=== PATIENT | female | born 2000 | race Caucasian/White ===

== ENCOUNTER 2019-07-25 17:17 | Emergency (ER) | payer MEDICAID ==
[~2019-07-25] VITALS: Ht 167.6 cm; Wt 88.6 kg
[2019-07-25 17:19] VITALS: BP 149/96
== END 2019-07-25 17:39 | disposition home or self-care (01) ==
LOC: ER 17:17
DX: J06.9 Acute upper respiratory infection, unspecified (principal)
CPT/HCPCS: 99281

== ENCOUNTER 2020-08-11 21:05 | Emergency (ER) | payer MEDICAID ==
[~2020-08-11] VITALS: Ht 167.6 cm; Wt 97.3 kg
[2020-08-11] MEDS ORDERED: LIDOcaine Viscous 15ml cup TP ONE (22:20)
[2020-08-11] MEDS ORDERED: mag hydrox/Alum hydrox/simeth 30ml oral suspension PO ONE (22:20)
[2020-08-11 22:21] VITALS: BP 124/82
== END 2020-08-11 22:59 | disposition home or self-care (01) ==
LOC: ER 21:06
DX: K29.00 Acute gastritis without bleeding (principal); A05.9 Bacterial foodborne intoxication, unspecified; R07.89 Other chest pain; M54.2 Cervicalgia; R11.10 Vomiting, unspecified; R06.02 Shortness of breath; F17.200 Nicotine dependence, unspecified, uncomplicated
CPT/HCPCS: 71045; 99283

== ENCOUNTER 2021-03-05 20:40 | Emergency (ER) | payer MEDICAID ==
[~2021-03-05] VITALS: Ht 165.1 cm; Wt 97.7 kg
[2021-03-05] MEDS ORDERED: famotidine/PF 10 mg/ml inj IV ONE (21:10)
[2021-03-05] MEDS ORDERED: ondansetron 4mg rapidly disintigrating tab PO ONE (21:10)
[2021-03-05 21:57] VITALS: BP 118/72
[2021-03-05] MEDS ORDERED: EPIN0.3P3 IM (22:28)
== END 2021-03-05 22:46 | disposition home or self-care (01) ==
LOC: ER 20:40
DX: T78.2XXA Anaphylactic shock, unspecified, initial encounter (principal); R42 Dizziness and giddiness; R06.02 Shortness of breath; R11.0 Nausea; Z72.0 Tobacco use; Z79.899 Other long term (current) drug therapy; X58.XXXA Exposure to other specified factors, initial encounter; Y93.89 Activity, other specified; Y92.89 Other specified places as the place of occurrence of the external cause; Y99.8 Other external cause status
CPT/HCPCS: 96374; 99284; J3490

== ENCOUNTER 2021-04-07 18:25 | Emergency (ER) | payer MEDICAID ==
[~2021-04-07] VITALS: Ht 165.1 cm; Wt 99.0 kg
[~2021-04-07 18:25] MED LIST: EPIN0.3P3 IM
[2021-04-07 18:43] VITALS: BP 143/81
[2021-04-07 21:04] LABS: BASOPHILS # (AUTO) 0.2 X10'3 (0-0.2); EOSINOPHILS # (AUTO) 0.4 X10'3 (0-0.9); EOSINOPHILS % (AUTO) 1.8 % (0-6); HEMOGLOBIN 13.5 g/dl (12.0-16.0); MEAN CORPUSCULAR HGB CONC 32.6 g/dL (33.0-36.5)
[2021-04-07 21:05] LABS: BASOPHILS % (AUTO) 0.9 % (0-1); HEMATOCRIT 41.5 % (35.0-45.0); LYMPHOCYTES # (AUTO) 4.3 X10'3 (1.1-4.8); LYMPHOCYTES % (AUTO) 20.3 % (21-51); MEAN CORPUSCULAR HEMOGLOBIN 25.5 PG (27.0-31.0); MEAN CORPUSCULAR VOLUME 78.2 FL (78-98); MEAN PLATELET VOLUME 9.2 FL (7.4-10.4); MONOCYTES # (AUTO) 1.3 X10'3 (0-0.9); MONOCYTES % (AUTO) 6.2 % (2-12); NEUTROPHILS % (AUTO) 70.8 % (42-75); PLATELET COUNT 378 X10'3 (140-440); RED BLOOD COUNT 5.31 X10'6 (4.20-5.60); RED CELL DISTRIBUTION WIDTH 13.1 % (11.5-14.5); WHITE BLOOD COUNT 21.2 X10'3 (4.5-11.0)
[2021-04-07 21:25] LABS: BETA HCG,QUANTITATIVE < 1.0 mIU/ml
[2021-04-07 22:11] LABS: CLARITY,URINE CLEAR (Clear); COLOR,URINE YELLOW (Yellow); GLUCOSE, URINE NEGATIVE (Neg); KETONES,URINE NEGATIVE (Neg); LEUKOCYTE ESTERASE ,URINE NEGATIVE (Neg); NITRITES, URINE NEGATIVE (Neg); OCCULT BLOOD,URINE NEGATIVE (Neg); PROTEIN,URINE NEGATIVE (Neg); UROBILINOGEN,URINE 0.2 E.U/dL (0.2-1.0)
[2021-04-07 22:12] LABS: UA COLLECTION TYPE CLN CATCH MIDSTREAM
[2021-04-07] MEDS ORDERED: ondansetron 4mg rapidly disintigrating tab PO ONE (22:20)
[2021-04-07] MEDS ORDERED: morphine 4 MG/ML inj SYRINge IM ONE (22:20)
[2021-04-07 22:45] LABS: ALANINE AMINOTRANSFERASE 58 U/L (12-78); ALBUMIN 3.6 G/DL (3.4-5.0); ALBUMIN/GLOBULIN RATIO 0.8 (1.1-1.5); ALKALINE PHOSPHATASE 80 IU/L (46-116); ANION GAP 12 (8-16); ASPARTATE AMINO TRANSFERASE 21 U/L (10-37); BILIRUBIN,TOTAL 0.2 MG/DL (0.1-1.0); BLOOD UREA NITROGEN 15 MG/DL (7-18); CALCIUM 9.8 MG/DL (8.5-10.1); CHLORIDE 105 MMOL/L (99-107); CREATININE 0.75 MG/DL (0.40-0.90); GLUCOSE 85 MG/DL (70-104); POTASSIUM 3.8 MMOL/L (3.5-5.1); SODIUM 141 MMOL/L (135-145); TOTAL CARBON DIOXIDE 23.9 MMOL/L (24-32); TOTAL PROTEIN 8.3 G/DL (6.4-8.2); eGFR > 90 ML/MIN
[2021-04-07] MEDS ORDERED: ACET-1025 PO (23:14)
== END 2021-04-07 23:44 | disposition home or self-care (01) ==
LOC: ER 18:26
DX: O26.91 Pregnancy related conditions, unspecified, first trimester (principal); N93.9 Abnormal uterine and vaginal bleeding, unspecified; R10.31 Right lower quadrant pain; Z3A.08 8 weeks gestation of pregnancy; Z79.899 Other long term (current) drug therapy
CPT/HCPCS: 36415; 74176; 80053; 81003; 84702; 85025; 86900; 86901; 99284

== ENCOUNTER 2021-07-21 16:29 | Inpatient (IN) | payer MEDICAID ==
[~2021-07-21] VITALS: Ht 165.1 cm; Wt 100.0 kg
[2021-07-21] MEDS ORDERED: normal saline 1000ml 1,000 ML IV ONE (17:30)
[2021-07-21 17:53] LABS: BASOPHILS # (AUTO) 0.2 X10'3 (0-0.2); BASOPHILS % (AUTO) 1.2 % (0-1); EOSINOPHILS # (AUTO) 0.6 X10'3 (0-0.9); EOSINOPHILS % (AUTO) 3.9 % (0-6); HEMATOCRIT 40.6 % (35.0-45.0); HEMOGLOBIN 13.3 g/dl (12.0-16.0); LYMPHOCYTES # (AUTO) 2.5 X10'3 (1.1-4.8); LYMPHOCYTES % (AUTO) 17.5 % (21-51); MEAN CORPUSCULAR HEMOGLOBIN 24.6 PG (27.0-31.0); MEAN CORPUSCULAR HGB CONC 32.7 g/dL (33.0-36.5); MEAN CORPUSCULAR VOLUME 75.2 FL (78-98); MEAN PLATELET VOLUME 8.4 FL (7.4-10.4); MONOCYTES # (AUTO) 0.9 X10'3 (0-0.9); MONOCYTES % (AUTO) 6.5 % (2-12); NEUTROPHILS # (AUTO) 10.2 X10'3 (1.8-7.7); NEUTROPHILS % (AUTO) 70.9 % (42-75); PLATELET COUNT 377 X10'3 (140-440); RED CELL DISTRIBUTION WIDTH 14.6 % (11.5-14.5); WHITE BLOOD COUNT 14.4 X10'3 (4.5-11.0)
[2021-07-21 17:58] LABS: URINE HCG NEGATIVE (NEG)
[2021-07-21 18:03] LABS: CLARITY,URINE CLOUDY (Clear); COLOR,URINE YELLOW (Yellow); GLUCOSE, URINE NEGATIVE (Neg); KETONES,URINE NEGATIVE (Neg); LEUKOCYTE ESTERASE ,URINE NEGATIVE (Neg); NITRITES, URINE NEGATIVE (Neg); OCCULT BLOOD,URINE NEGATIVE (Neg); PROTEIN,URINE NEGATIVE (Neg); UROBILINOGEN,URINE 0.2 E.U/dL (0.2-1.0)
[2021-07-21 18:05] LABS: UA COLLECTION TYPE CLN CATCH MIDSTREAM
[2021-07-21 18:11] LABS: MUCUS STRANDS MANY /LPF (Neg); SQUAMOUS EPITHELIAL CELL,UR MANY /LPF (FEW)
[2021-07-21 18:12] LABS: BACTERIA,URINE 2+ /HPF (Neg); RBC,URINE 0-2 /HPF (0-2)
[2021-07-21 18:12] LABS: ALANINE AMINOTRANSFERASE 65 U/L (12-78); ALBUMIN 3.4 G/DL (3.4-5.0); ALBUMIN/GLOBULIN RATIO 0.7 (1.1-1.5); ALKALINE PHOSPHATASE 78 IU/L (46-116); ANION GAP 13 (8-16); ASPARTATE AMINO TRANSFERASE 23 U/L (10-37); BILIRUBIN,TOTAL 0.3 MG/DL (0.1-1.0); BLOOD UREA NITROGEN 13 MG/DL (7-18); BUN/CREATININE RATIO 17.8 (6.6-38.0); CALCIUM 8.7 MG/DL (8.5-10.1); CHLORIDE 104 MMOL/L (99-107); CREATININE 0.73 MG/DL (0.40-0.90); GLUCOSE 90 MG/DL (70-104); POTASSIUM 3.7 MMOL/L (3.5-5.1); SODIUM 140 MMOL/L (135-145); TOTAL CARBON DIOXIDE 23.5 MMOL/L (24-32); TOTAL PROTEIN 8.2 G/DL (6.4-8.2); eGFR > 90 ML/MIN
[2021-07-21 18:13] LABS: D-DIMER < 0.19 MG/L FEU (0-0.50)
[2021-07-21 18:27] LABS: MAGNESIUM 1.9 MG/DL (1.5-2.4)
[2021-07-21] MEDS ORDERED: bisacodyl 10mg suppository rectal RC PRN (20:15)
[2021-07-21] MEDS ORDERED: ondansetron 4mg rapidly disintigrating tab PO PRN (20:15)
[2021-07-21] MEDS ORDERED: HYDROcodone/acetaminophen 5mg/325mg tablet PO PRN (20:15)
[2021-07-21] MEDS ORDERED: acetaminophen 325mg tablet PO PRN ×2 (20:15)
[2021-07-21] MEDS ORDERED: magnesium hydroxide 30ml (MOM) UD suspension PO PRN (20:15)
[2021-07-21] MEDS ORDERED: acetaminophen 650mg rectal suppository RC PRN (20:15)
[2021-07-21] MEDS ORDERED: ondansetron/PF 4mg/2ml inj IV PRN (20:15)
[2021-07-21] MEDS ORDERED: mag hydrox/Alum hydrox/simeth 30ml oral suspension PO PRN (20:15)
[2021-07-21] MEDS ORDERED: morphine 2 MG/ML inj. syringe IV PRN (20:15)
[2021-07-21] MEDS ORDERED: diphenhydrAMINE 50 mg/ml inj IV PRN (20:15)
[2021-07-21] MEDS ORDERED: diphenhydrAMINE 25mg capsule PO PRN (20:15)
[2021-07-21] MEDS: normal saline 1000ml 1,000 ML IV SCH (20:42)
[2021-07-21] MEDS ORDERED: ringers solution, lacted 1,000 ML IV ONE (20:50)
[2021-07-21 20:58] LABS: CREATINE KINASE 42 U/L (26-192); LIPASE 67 U/L (73-393); PHOSPHORUS 3.3 MG/DL (2.3-4.5)
[2021-07-21] MEDS ORDERED: temazepam 15mg capsule PO PRN (21:00)
[2021-07-21 21:05] LABS: APTT 28 SECONDS (22-32)
[2021-07-21 21:10] LABS: URINE AMPHETAMINE SCREEN NEGATIVE (Neg); URINE BARBITUATE SCREEN NEGATIVE (Neg); URINE BENZODIAZEPINES SCREEN NEGATIVE (Neg); URINE CANNABINOID SCREEN NEGATIVE (Neg); URINE COCAINE SCREEN NEGATIVE (Neg); URINE METHADONE SCREEN NEGATIVE (Neg); URINE OPIATE SCREEN NEGATIVE (Neg); URINE PHENCYCLIDINE SCREEN NEGATIVE (Neg)
[2021-07-21 22:50] VITALS: BP 136/58
[2021-07-22] MEDS: heparin, porcine 5000 units/ml vial SQ SCH ×3 (00:47→21:23)
[2021-07-22 02:00] VITALS: BP 124/71
[2021-07-22] MEDS: normal saline 1000ml 1,000 ML IV SCH ×3 (02:38→16:08)
[2021-07-22 06:26] LABS: BASOPHILS # (AUTO) 0.1 X10'3 (0-0.2); BASOPHILS % (AUTO) 0.6 % (0-1); EOSINOPHILS # (AUTO) 0.5 X10'3 (0-0.9); EOSINOPHILS % (AUTO) 4.1 % (0-6); HEMATOCRIT 36.7 % (35.0-45.0); HEMOGLOBIN 11.9 g/dl (12.0-16.0); LYMPHOCYTES # (AUTO) 2.8 X10'3 (1.1-4.8); LYMPHOCYTES % (AUTO) 22.4 % (21-51); MEAN CORPUSCULAR HEMOGLOBIN 24.8 PG (27.0-31.0); MEAN CORPUSCULAR HGB CONC 32.3 g/dL (33.0-36.5); MEAN CORPUSCULAR VOLUME 76.7 FL (78-98); MEAN PLATELET VOLUME 8.2 FL (7.4-10.4); MONOCYTES # (AUTO) 0.8 X10'3 (0-0.9); MONOCYTES % (AUTO) 6.4 % (2-12); NEUTROPHILS # (AUTO) 8.4 X10'3 (1.8-7.7); NEUTROPHILS % (AUTO) 66.5 % (42-75); PLATELET COUNT 328 X10'3 (140-440); RED BLOOD COUNT 4.79 X10'6 (4.20-5.60); RED CELL DISTRIBUTION WIDTH 14.1 % (11.5-14.5); WHITE BLOOD COUNT 12.6 X10'3 (4.5-11.0)
[2021-07-22 06:42] LABS: ALANINE AMINOTRANSFERASE 49 U/L (12-78); ALBUMIN 2.9 G/DL (3.4-5.0); ALBUMIN/GLOBULIN RATIO 0.7 (1.1-1.5); ALKALINE PHOSPHATASE 67 IU/L (46-116); ANION GAP 8 (8-16); ASPARTATE AMINO TRANSFERASE 21 U/L (10-37); BILIRUBIN,TOTAL 0.6 MG/DL (0.1-1.0); BLOOD UREA NITROGEN 10 MG/DL (7-18); BUN/CREATININE RATIO 14.1 (6.6-38.0); CALCIUM 8.2 MG/DL (8.5-10.1); CHLORIDE 109 MMOL/L (99-107); CHOL/HDL RATIO 3.9 (0.00-4.99); CHOLESTEROL 125 MG/DL (0-200); CREATININE 0.71 MG/DL (0.40-0.90); GLUCOSE 111 MG/DL (70-104); HDL CHOLESTEROL 32 MG/DL (35-60); LDL CHOLESTEROL 81 MG/DL (50-100); POTASSIUM 3.8 MMOL/L (3.5-5.1); SODIUM 140 MMOL/L (135-145); TOTAL CARBON DIOXIDE 22.9 MMOL/L (24-32); TOTAL PROTEIN 6.8 G/DL (6.4-8.2); TRIGLYCERIDES 120 MG/DL (20-135); eGFR > 90 ML/MIN
--- NOTE | 2021-07-22 06:53 | NUR ---
Patient in room PCU 3013. I have received report from Dodie and had the opportunity to ask questions and assume patient care.
[2021-07-22 07:00] VITALS: BP 119/66
[2021-07-22] MEDS: pantoprazole 40mg Tablet.DR PO SCH (07:58)
[2021-07-22] MEDS: docusate sod 100mg capsule PO SCH ×2 (07:58→21:21)
[2021-07-22] MEDS ORDERED: levoFLOXACIN-Levaquin 750MG/D5 150 ML IV SCH (08:00)
[2021-07-22] MEDS ORDERED: NO HOME MEDS (09:37)
[2021-07-22] MEDS ORDERED: potassium Cl 20 mEq SR tablet PO PRN ×2 (09:50)
[2021-07-22] MEDS ORDERED: magnesium 4gm in 100ml NS 100 ML IV PRN (09:50)
[2021-07-22] MEDS ORDERED: potassium CL 10mEq/100ml bag 100 ML IV PRN (09:50)
[2021-07-22] MEDS ORDERED: magnesium Cl slow-release 64mg tablet PO PRN (09:50)
[2021-07-22 11:00] VITALS: BP 111/59
[2021-07-22 15:00] VITALS: BP 112/74
--- NOTE | 2021-07-22 15:50 | NUR ---
When rounding on pt, pt states "I passed out around 1330 or 1400 today, I did not notify staff because I felt fine". Tele leads shows no sustaining changes at those times. Pt states she feels fine and only feels dizzy/ lightheadedness/ nauseous when she passes out, but quickly feels better afterwards. Pt states that she will notify staff the next time she feels lighted/ dizzy.
--- NOTE | 2021-07-22 16:00 | NUR ---
Page [id number] Joi. Pt received 250 mL. BP now 106/49. Do you want to stop dobutamine gtt? Shaq Thuy
--- NOTE | 2021-07-22 16:30 | NUR ---
Tele-Neuro consult. MD consulted patient via tele-health. MD asked pt about past medical history and stated that he will consult with the team. RN at bedside.
[2021-07-22 18:00] VITALS: BP 127/87
--- NOTE | 2021-07-22 18:14 | NUR ---
Problems reprioritized. Patient report given, questions answered & plan of care reviewed with
[2021-07-22] MEDS: K and/or MAG REPLACEMENT MC SCH (19:01)
[2021-07-22 22:00] VITALS: BP 121/63
[2021-07-23 02:00] VITALS: BP 106/50
[2021-07-23] MEDS: normal saline 1000ml 1,000 ML IV SCH ×2 (03:40→12:14)
[2021-07-23 05:59] LABS: BASOPHILS # (AUTO) 0.1 X10'3 (0-0.2); BASOPHILS % (AUTO) 1.2 % (0-1); EOSINOPHILS # (AUTO) 0.4 X10'3 (0-0.9); EOSINOPHILS % (AUTO) 3.5 % (0-6); HEMATOCRIT 35.2 % (35.0-45.0); HEMOGLOBIN 11.8 g/dl (12.0-16.0); LYMPHOCYTES # (AUTO) 2.8 X10'3 (1.1-4.8); MEAN CORPUSCULAR HEMOGLOBIN 25.7 PG (27.0-31.0); MEAN CORPUSCULAR HGB CONC 33.5 g/dL (33.0-36.5); MEAN CORPUSCULAR VOLUME 76.8 FL (78-98); MEAN PLATELET VOLUME 8.1 FL (7.4-10.4); MONOCYTES # (AUTO) 0.6 X10'3 (0-0.9); MONOCYTES % (AUTO) 5.2 % (2-12); NEUTROPHILS # (AUTO) 7.8 X10'3 (1.8-7.7); NEUTROPHILS % (AUTO) 66.1 % (42-75); PLATELET COUNT 311 X10'3 (140-440); RED BLOOD COUNT 4.59 X10'6 (4.20-5.60); RED CELL DISTRIBUTION WIDTH 14.1 % (11.5-14.5); WHITE BLOOD COUNT 11.8 X10'3 (4.5-11.0)
[2021-07-23 06:17] LABS: ALANINE AMINOTRANSFERASE 47 U/L (12-78); ALBUMIN 2.7 G/DL (3.4-5.0); ALBUMIN/GLOBULIN RATIO 0.7 (1.1-1.5); ALKALINE PHOSPHATASE 66 IU/L (46-116); ANION GAP 10 (8-16); ASPARTATE AMINO TRANSFERASE 19 U/L (10-37); BILIRUBIN,TOTAL 0.4 MG/DL (0.1-1.0); BLOOD UREA NITROGEN 6 MG/DL (7-18); BUN/CREATININE RATIO 7.7 (6.6-38.0); CALCIUM 8.3 MG/DL (8.5-10.1); CHLORIDE 106 MMOL/L (99-107); CREATININE 0.78 MG/DL (0.40-0.90); GLUCOSE 105 MG/DL (70-104); MAGNESIUM 1.8 MG/DL (1.5-2.4); PHOSPHORUS 3.2 MG/DL (2.3-4.5); POTASSIUM 3.6 MMOL/L (3.5-5.1); SODIUM 138 MMOL/L (135-145); TOTAL CARBON DIOXIDE 21.9 MMOL/L (24-32); TOTAL PROTEIN 6.7 G/DL (6.4-8.2); eGFR > 90 ML/MIN
--- NOTE | 2021-07-23 06:21 | NUR ---
Patient in room PCU 3013. I have received report from Dodie and had the opportunity to ask questions and assume patient care.
[2021-07-23 07:00] VITALS: BP 120/72
[2021-07-23 08:00] VITALS: BP_SYST 115; BP_SYST 123; BP_SYST 125; BP_DIAS 60; BP_DIAS 74; BP_DIAS 76
[2021-07-23] MEDS: docusate sod 100mg capsule PO SCH ×2 (08:00→08:24)
[2021-07-23] MEDS: K and/or MAG REPLACEMENT MC SCH (08:00)
[2021-07-23] MEDS ORDERED: cefTRIAXone 1g/NS 100ml IVPB 100 ML IV SCH (08:00)
[2021-07-23] MEDS: pantoprazole 40mg Tablet.DR PO SCH (08:24)
[2021-07-23] MEDS: heparin, porcine 5000 units/ml vial SQ SCH (08:25)
--- NOTE | 2021-07-23 09:56 | NUR ---
Page Sent promotional table spacer PAGER ID: [phone] MESSAGE: [id number]. Flavio. Tele order d/c-ed. Do you want to continue tele monitoring? Shaq GREGORY
[2021-07-23 11:00] VITALS: BP 126/75
--- NOTE | 2021-07-23 15:50 | NUR ---
Page Sent promotional table spacer PAGER ID: [phone] MESSAGE: [id number] Flavio. EEG complete. Tech notes nothing remarkable. Called cardiac rehab to do tilt test, still waiting to hear back. Shaq Thuy
--- NOTE | 2021-07-23 17:40 | NUR ---
Pt discharged. IV's out. Pt and friend reviewed paperwork with RN. Asked follow-up questions and information. Pt states she will call her doctor in the morning to make a follow-up appointment and to ask about driving. Pt discharged via wheelchair with friend to go home.
[2021-07-23] MEDS ORDERED: GADOTERATE MEGLUMINE 7.5 MMOL/15 ML VIAL IV ONE (19:09)
== END 2021-07-23 17:48 | disposition home or self-care (01) | DRG 204 ==
LOC: ER 16:30 → ED HOLD 20:22 → PCU 3S 22:20
PROVIDERS: ADMIT Family Medicine; ATTEND Family Medicine
PROC: 4A10X4Z Monitoring of Central Nervous Electrical Activity, External Approach (ICD-10-PCS; principal; 2021-07-23)
DX: R55 Syncope and collapse (principal); E66.9 Obesity, unspecified; G43.909 Migraine, unspecified, not intractable, without status migrainosus; F17.200 Nicotine dependence, unspecified, uncomplicated; I10 Essential (primary) hypertension; R73.03 Prediabetes; N39.0 Urinary tract infection, site not specified; R20.2 Paresthesia of skin; R00.2 Palpitations; Z82.3 Family history of stroke; Z83.3 Family history of diabetes mellitus; Z82.0 Family history of epilepsy and other diseases of the nervous system; Z68.36 Body mass index [BMI] 36.0-36.9, adult; Z91.048 Other nonmedicinal substance allergy status; Z87.440 Personal history of urinary (tract) infections; Z71.6 Tobacco abuse counseling
CPT/HCPCS: 36415; 70450; 70544; 70547; 70553; 71045; 80053; 80061; 80305; 81001; 81025; 82550; 83036; 83605; 83690; 83735; 83880; 84100; 84443; 84484; 85025; 85379; 85610; 85730; 87040; 87081; 93005; 93306; 95816; 97116; 97161; 97530; 99285; A9575; G0378; J0696; J1644; J1956; J7030; J7120

== ENCOUNTER 2021-09-10 12:39 | Outpatient (CLI) | payer MEDICAID ==
[2021-09-10] VITALS (18 sets, daily range): BP systolic 72–137; BP diastolic 34–110
== END 2021-09-10 23:59 | disposition home or self-care (01) ==
LOC: CARD DIAG 12:39
PROVIDERS: ATTEND Nurse Practitioner Family
DX: I47.1 Supraventricular tachycardia (principal); R55 Syncope and collapse
CPT/HCPCS: 93660

== ENCOUNTER 2021-10-01 20:00 | Emergency (ER) | payer MEDICAID | END 2021-10-01 20:30 | disposition left against medical advice (07) | LOC: ER 20:00 | DX: R55 Syncope and collapse (principal); R42 Dizziness and giddiness; Z88.8 Allergy status to other drugs, medicaments and biological substances; Z79.899 Other long term (current) drug therapy | CPT/HCPCS: 99283 ==

== ENCOUNTER 2023-07-17 22:00 | Emergency (ER) | payer MEDICAID ==
[~2023-07-17] VITALS: Ht 165.1 cm; Wt 108.2 kg
[2023-07-17 22:00] VITALS: BP 156/87; PULSE 117; TEMP 100.6; O2SAT 97
[2023-07-17] MEDS: ibuprofen tablet 400 MG TABLET PO ONE (23:41)
[2023-07-18] MEDS ORDERED: AZIT500T9 PO (00:23)
[2023-07-18 00:33] VITALS: RESP 18
[2023-07-18] MEDS: azithromycin 250mg tablet PO ONE ×2 (00:42)
== END 2023-07-18 00:44 | disposition home or self-care (01) ==
LOC: ER 22:00
DX: J18.9 Pneumonia, unspecified organism (principal); Z20.822 Contact with and (suspected) exposure to COVID-19; R06.02 Shortness of breath; Z88.8 Allergy status to other drugs, medicaments and biological substances; Z79.2 Long term (current) use of antibiotics
CPT/HCPCS: 36415; 71045; 87811; 99284

== ENCOUNTER 2023-08-22 17:40 | Inpatient (IN) | payer MEDICAID ==
[~2023-08-22] VITALS: Ht 162.6 cm; Wt 103.0 kg
[~2023-08-22 17:40] MED LIST changes: +AZIT500T9 PO; -EPIN0.3P3 IM
[2023-08-22 18:55] LABS: BASOPHILS # (AUTO) 0.1 X10'3 (0-0.2); BASOPHILS % (AUTO) 0.5 % (0-1); EOSINOPHILS # (AUTO) 0.3 X10'3 (0-0.9); EOSINOPHILS % (AUTO) 2.8 % (0-6); HEMATOCRIT 42.1 % (35.0-45.0); HEMOGLOBIN 13.8 g/dl (12.0-16.0); LYMPHOCYTES % (AUTO) 9.9 % (21-51); MEAN CORPUSCULAR HEMOGLOBIN 24.4 PG (27.0-31.0); MEAN CORPUSCULAR HGB CONC 32.9 g/dL (33.0-36.5); MEAN CORPUSCULAR VOLUME 74.2 FL (78-98); MEAN PLATELET VOLUME 7.9 FL (7.4-10.4); MONOCYTES # (AUTO) 0.9 X10'3 (0-0.9); MONOCYTES % (AUTO) 8.2 % (2-12); NEUTROPHILS # (AUTO) 8.2 X10'3 (1.8-7.7); NEUTROPHILS % (AUTO) 78.6 % (42-75); PLATELET COUNT 355 X10'3 (140-440); RED BLOOD COUNT 5.67 X10'6 (4.20-5.60); RED CELL DISTRIBUTION WIDTH 15.9 % (11.5-14.5); WHITE BLOOD COUNT 10.5 X10'3 (4.5-11.0)
[2023-08-22 19:05] LABS: D-DIMER 0.74 MG/L FEU (0-0.50)
[2023-08-22 19:17] LABS: ALBUMIN 3.5 G/DL (3.4-5.0); ANION GAP 13 (8-16); BLOOD UREA NITROGEN 11 MG/DL (7-18); BUN/CREATININE RATIO 12.1 (10.0-20.0); CHLORIDE 100 MMOL/L (99-107); CREATININE 0.91 MG/DL (0.40-0.90); GLUCOSE 102 MG/DL (70-104); POTASSIUM 3.2 MMOL/L (3.5-5.1); PRO BRAIN NATRIURETIC PEPTIDE 67 PG/ML (0-125); SODIUM 137 MMOL/L (135-145); TOTAL CARBON DIOXIDE 24.5 MMOL/L (24-32); eCRCL 82 ML/MIN; eGFR 76 ML/MIN
[2023-08-22 19:21] LABS: ALANINE AMINOTRANSFERASE 99 U/L (12-78); ALBUMIN 3.5 G/DL (3.4-5.0); ALBUMIN/GLOBULIN RATIO 0.6 (1.1-1.5); ALKALINE PHOSPHATASE 80 IU/L (46-116); ANION GAP 12 (8-16); ASPARTATE AMINO TRANSFERASE 56 U/L (10-37); BILIRUBIN,TOTAL 0.3 MG/DL (0.1-1.0); BLOOD UREA NITROGEN 11 MG/DL (7-18); BUN/CREATININE RATIO 12.6 (10.0-20.0); CALCIUM 8.9 MG/DL (8.5-10.1); CHLORIDE 100 MMOL/L (99-107); CREATINE KINASE 54 U/L (26-192); CREATININE 0.87 MG/DL (0.40-0.90); GLUCOSE 103 MG/DL (70-104); POTASSIUM 3.2 MMOL/L (3.5-5.1); SODIUM 137 MMOL/L (135-145); TOTAL CARBON DIOXIDE 25.1 MMOL/L (24-32); TOTAL PROTEIN 8.9 G/DL (6.4-8.2); eCRCL 86 ML/MIN; eGFR 80 ML/MIN
[2023-08-22 19:55] LABS: BILIRUBIN,URINE MODERATE (Neg); CLARITY,URINE SLIGHTLY CLOUDY (Clear); GLUCOSE, URINE NEGATIVE (Neg); KETONES,URINE TRACE mg/dl (Neg); LEUKOCYTE ESTERASE ,URINE NEGATIVE (Neg); NITRITES, URINE NEGATIVE (Neg); OCCULT BLOOD,URINE LARGE (Neg); PROTEIN,URINE 100 mg/dl (Neg); UROBILINOGEN,URINE 0.2 E.U/dL (0.2-1.0)
[2023-08-22 20:00] LABS: URINE HCG NEGATIVE (NEG)
[2023-08-22 20:13] LABS: URINE AMPHETAMINE SCREEN NEGATIVE (Neg); URINE BARBITUATE SCREEN NEGATIVE (Neg); URINE BENZODIAZEPINES SCREEN NEGATIVE (Neg); URINE CANNABINOID SCREEN POSITIVE (Neg); URINE COCAINE SCREEN NEGATIVE (Neg); URINE METHADONE SCREEN NEGATIVE (Neg); URINE OPIATE SCREEN NEGATIVE (Neg); URINE PHENCYCLIDINE SCREEN NEGATIVE (Neg)
[2023-08-22 20:25] LABS: COLOR,URINE DARK YELLOW (Yellow); UA COLLECTION TYPE CLN CATCH MIDSTREAM
[2023-08-22 20:29] LABS: BACTERIA,URINE FEW /HPF (Neg); MUCUS STRANDS MODERATE /LPF (Neg); SQUAMOUS EPITHELIAL CELL,UR FEW /LPF (FEW); WBC,URINE 0-4 /HPF (0-4)
[2023-08-22 20:30] LABS: RENAL CELLS, URINE FEW /HPF; TRANSITIONAL EPI CELLS,URINE FEW /HPF
[2023-08-22] MEDS ORDERED: iohexol 350MG/ML 100ml bottle IV ONE (21:31)
[2023-08-22] MEDS: ondansetron/PF 4mg/2ml inj IV ONE (23:13)
[2023-08-22] MEDS: normal saline 1000ml 1,000 ML IV ONE (23:13)
[2023-08-22] MEDS: potassium Cl 20 mEq SR tablet PO STA (23:22)
[2023-08-23] MEDS ORDERED: ARIP5TAB12 PO (00:28)
[2023-08-23] MEDS ORDERED: metoclopramide 5 mg/ml inj IV PRN (01:00)
[2023-08-23] MEDS ORDERED: magnesium Cl slow-release 64mg tablet PO PRN (01:00)
[2023-08-23] MEDS ORDERED: magnesium 4gm in 100ml NS 100 ML IV PRN (01:00)
[2023-08-23] MEDS ORDERED: potassium Cl 40MEQ/1/2NS 520ml 520 ML IV PRN (01:00)
[2023-08-23] MEDS ORDERED: potassium Cl 20 mEq SR tablet PO PRN (01:00)
[2023-08-23] MEDS ORDERED: mag hydrox/Alum hydrox/simeth 30ml oral suspension PO PRN (01:00)
[2023-08-23] MEDS ORDERED: magnesium hydroxide 30ml (MOM) UD suspension PO PRN (01:00)
[2023-08-23] MEDS ORDERED: magnesium 2GM in 50ml NS 50 ML IV PRN (01:00)
[2023-08-23] MEDS: normal saline 1000ml 1,000 ML IV ONE (01:23)
[2023-08-23] MEDS: normal saline 1000ml 1,000 ML IV SCH (02:07)
[2023-08-23 07:19] LABS: MAGNESIUM 2.2 MG/DL (1.5-2.4)
[2023-08-23] MEDS: lactobacillus rhamnosus 10,000 MMU CELLS/CAPSULE PO SCH (07:21)
[2023-08-23] MEDS: metroNIDAZOLE 500mg tablet PO SCH (07:21)
[2023-08-23] MEDS: K and/or MAG REPLACEMENT MC SCH (07:22)
[2023-08-23] MEDS: enoxaparin 40mg/0.4ml syringe SUBCUT SCH (07:22)
[2023-08-23] MEDS: docusate sod 100mg capsule PO SCH (07:22)
[2023-08-23 07:27] VITALS: BP 130/82; PULSE 107; RESP 17; TEMP 97.7; O2SAT 98
[2023-08-23 07:28] LABS: HEMOGLOBIN A1C 6.1 % (4.5-6.2)
[2023-08-23 08:00] VITALS: RESP 12; O2SAT 98
[2023-08-23 08:44] LABS: C DIFF ANTIGEN NEGATIVE (NEGATIVE); C DIFF SPECIMEN=DIARRHEA? ACCEPTABLE; C DIFFICILE TOXINS A&B NEGATIVE (Neg)
[2023-08-23 11:00] VITALS: BP 120/69; PULSE 100; RESP 17; TEMP 97.7; O2SAT 98
[2023-08-23] MEDS: ciprofloxacin 250mg tablet PO SCH (11:30)
[2023-08-23] MEDS: ondansetron/PF 4mg/2ml inj IV PRN (11:31)
[2023-08-23] MEDS: acetaminophen 325mg tablet PO PRN (13:05)
[2023-08-23 15:00] VITALS: BP 132/81; PULSE 102; RESP 17; TEMP 97.4; O2SAT 93
[2023-08-23 18:00] VITALS: BP 125/71; PULSE 95; RESP 16; TEMP 98.6; O2SAT 97
[2023-08-23] MEDS: loperamide 2mg capsule PO PRN (19:04)
[2023-08-23] MEDS: aripiprazole 5mg tablet PO SCH (20:29)
[2023-08-23] MEDS: potassium Cl 20 mEq SR tablet PO PRN (20:29)
[2023-08-23 22:00] VITALS: BP 128/83; PULSE 102; RESP 18; TEMP 97.9; O2SAT 95
[2023-08-24 02:00] VITALS: BP 126/75; PULSE 98; RESP 16; TEMP 97.7; O2SAT 97
[2023-08-24 06:51] LABS: BASOPHILS % (AUTO) 0.6 % (0-1); EOSINOPHILS # (AUTO) 0.4 X10'3 (0-0.9); EOSINOPHILS % (AUTO) 6.7 % (0-6); HEMATOCRIT 36.8 % (35.0-45.0); HEMOGLOBIN 12.2 g/dl (12.0-16.0); LYMPHOCYTES # (AUTO) 1.5 X10'3 (1.1-4.8); LYMPHOCYTES % (AUTO) 25.4 % (21-51); MEAN CORPUSCULAR HEMOGLOBIN 24.8 PG (27.0-31.0); MEAN CORPUSCULAR VOLUME 75.1 FL (78-98); MEAN PLATELET VOLUME 8.2 FL (7.4-10.4); MONOCYTES # (AUTO) 0.8 X10'3 (0-0.9); MONOCYTES % (AUTO) 14.2 % (2-12); NEUTROPHILS # (AUTO) 3.2 X10'3 (1.8-7.7); NEUTROPHILS % (AUTO) 53.1 % (42-75); PLATELET COUNT 321 X10'3 (140-440); RED CELL DISTRIBUTION WIDTH 15.9 % (11.5-14.5)
[2023-08-24 06:57] VITALS: BP 121/81; PULSE 91; RESP 12; TEMP 98.1; O2SAT 97
[2023-08-24 07:26] LABS: ALANINE AMINOTRANSFERASE 132 U/L (12-78); ALBUMIN 2.9 G/DL (3.4-5.0); ALBUMIN/GLOBULIN RATIO 0.6 (1.1-1.5); ALKALINE PHOSPHATASE 73 IU/L (46-116); ANION GAP 8 (8-16); ASPARTATE AMINO TRANSFERASE 74 U/L (10-37); BILIRUBIN,TOTAL 0.2 MG/DL (0.1-1.0); BLOOD UREA NITROGEN 4 MG/DL (7-18); BUN/CREATININE RATIO 5.8 (10.0-20.0); CALCIUM 8.5 MG/DL (8.5-10.1); CHLORIDE 109 MMOL/L (99-107); CHOL/HDL RATIO 4.8 (0.00-4.99); CHOLESTEROL 129 MG/DL (0-200); CREATININE 0.69 MG/DL (0.40-0.90); GLUCOSE 91 MG/DL (70-104); HDL CHOLESTEROL 27 MG/DL (35-60); LDL CHOLESTEROL 81 MG/DL (50-100); POTASSIUM 3.7 MMOL/L (3.5-5.1); SODIUM 140 MMOL/L (135-145); TOTAL CARBON DIOXIDE 23.1 MMOL/L (24-32); TOTAL PROTEIN 7.5 G/DL (6.4-8.2); TRIGLYCERIDES 131 MG/DL (20-135); eCRCL 109 ML/MIN; eGFR > 90 ML/MIN
[2023-08-24 08:00] VITALS: RESP 16; O2SAT 99
[2023-08-24] MEDS ORDERED: LOPE2TAB25 PO (10:42)
[2023-08-24 11:00] VITALS: BP 134/88; PULSE 111; RESP 22; TEMP 98.4; O2SAT 99
[2023-08-24] MEDS ORDERED: ONDA4TAB12 PO (11:44)
== END 2023-08-24 12:15 | disposition home or self-care (01) | DRG 249 ==
LOC: ER 17:41 → ED HOLD 08-23 01:05 → PCU 3S 08-23 07:30
PROVIDERS: ADMIT Surgery Surgical Critical Care; ATTEND Internal Medicine
PROC: B32T1ZZ Computerized Tomography (CT Scan) of Left Pulmonary Artery using Low Osmolar Contrast (ICD-10-PCS; 2023-08-22)
PROC: B32S1ZZ Computerized Tomography (CT Scan) of Right Pulmonary Artery using Low Osmolar Contrast (ICD-10-PCS; 2023-08-22)
PROC: 4A10X4Z Monitoring of Central Nervous Electrical Activity, External Approach (ICD-10-PCS; principal; 2023-08-23)
DX: A08.4 Viral intestinal infection, unspecified (principal); R56.9 Unspecified convulsions; E86.0 Dehydration; E87.6 Hypokalemia; Z83.3 Family history of diabetes mellitus
CPT/HCPCS: 36415; 70450; 71045; 71275; 80048; 80053; 80061; 80305; 81001; 81025; 82550; 83036; 83605; 83735; 83880; 84100; 84484; 85025; 85379; 87045; 87046; 87081; 87324; 87449; 89055; 93005; 95816; 96361; 96374; 99285; G0378; J1650; J2405; J3490; J7030; Q9967

== ENCOUNTER 2024-09-12 13:17 | Emergency (ER) | payer MEDICAID ==
[~2024-09-12] VITALS: Ht 165.1 cm; Wt 102.7 kg
[~2024-09-12 13:17] MED LIST changes: +ARIP5TAB12 PO; -AZIT500T9 PO; +LOPE2TAB25 PO; +ONDA-243 PO
[2024-09-12 13:31] VITALS: BP 154/101; PULSE 98; RESP 18; TEMP 97.9; O2SAT 100
--- NOTE | 2024-09-12 14:17 | Physician Documentation ---
History of Present Illness ~ Chief Complaint: Mechanical Fall Stated Complaint: FALL/HEAD STRIKE/NO LOC/NAUSEA Time Seen by MD: 13:56 Primary Medical Doctor: NONE HPI This is a 24-year-old female who presents after a ground level trip and fall falling backwards striking her occipital head on concrete for, patient reports no loss of consciousness, no use of blood thinners, no vision changes, no new weakness or numbness, no loss of bowel or bladder control, no persistent vomiting. Patient does report some nausea and persistent headache that decreases intensity with [id number] Tylenol. Patient reports no other in juries and no other acute symptoms or concerns. 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 Physical Exam Vital Signs: Temperature: 97.9, Source: Temporal, Heart Rate: 98, Respiratory Rate: 18, BP: 154/101, Pulse Oximetry: 100, Weight: 102.730 Oxygen Flow Rate: 0 Physical Exam VITALS: Reviewed and as above. GENERAL: Alert, nontoxic appearing, no apparent distress. HEENT: PERRLA, EOMI, no raccoon eyes, no ramirez sign, no C-spine tenderness, no crepitus, no step-offs. Occipital region tender to palpation no lacerations, no hematoma RESPIRATORY: No increased work of breathing, no respiratory distress, speaking in full clear sentences BACK: Mild tenderness to palpation of upper back without focal central spinal tenderness, no crepitus, no step-offs MUSCULOSKELETAL: No deformities NEURO: Oriented x4 GCS 15 Progress Results/Orders Results/Orders Vital Signs 09/12/24 13:31 Temp 97.9 Pulse 98 Resp 18 B/P (MAP) 154/101 Pulse Ox 100 O2 Flow Rate 0 Medical Decision Making Findings This otherwise well-appearing 24-year-old female presented with pain to the occipital scalp, headache, and nausea after a mechanical fall striking the posterior aspect of or head on the ground, there was no loss of consciousness or blood thinner use reported. Is reassuring patient did not report persistent vomiting and physical exam did not demonstrate evidence of basilar skull fracture including no raccoon eyes, no ramirez sign, and no otorrhea. C-spine imaging not indicated per cane C-spine rule, head CT not indicated per [place] head CT rule. Based on history and exam symptoms consistent with concussion. Patient is otherwise well-appearing and has stable vital signs, she is appropri ate for outpatient follow up. Patient provided home care instructions, return to care precautions, and follow up instructions which she verbalized understanding of. Differential Dx:Considerations: Include: Closed head injury, Fracture(s), Cerebral contusion, Spine injury, Hematoma(s), Laceration(s) Departure Disposition: 01 HOME / SELF CARE / HOMELESS Impression: Primary Impression: Concussion Qualified Codes: S06.0X0A - Concussion without loss of consciousness, initial encounter Additional Impression: Head injury due to trauma Qualified Codes: S09.90XA - Unspecified injury of head, initial encounter Condition: Improved Discharge Instructions: Concussion, Adult, [id number] Additional Instructions: Continue to use ibuprofen and or Tylenol as needed for pain as directed by [id number] packaging. Please see the attached home care instructions for concussion care or you can Internet search the CDC guidelines for concussion care. Please follow up with your primary care provider in the next few days. Please return to the emergency department for any new or worsening concerning symptoms including but not limited to persistent vomiting, confusion, vision changes, new weakness or numbness, for loss of bowel or bladder control. Departure Forms: Excuse form Work or School Excused From: Work Excuse beginning now through the following date: Sep 13, 2024 Referrals: NO PRIMARY CARE PROVIDER (PCP) Education Educated: Patient Educated regarding: diagnosis, treatment, prognosis, need for follow up Signature Scribe Signature: No scribe Attestation: The note accurately reflects work and decisions made by me.ALYSSA Siddiqui 09/13/24 03:57 SERINA TYSON Sep 12, 2024 14:17
== END 2024-09-12 14:40 | disposition home or self-care (01) ==
LOC: ER 13:18
DX: S06.0X0A Concussion without loss of consciousness, initial encounter (principal); W01.0XXA Fall on same level from slipping, tripping and stumbling without subsequent striking against object, initial encounter; Y93.89 Activity, other specified; Y92.89 Other specified places as the place of occurrence of the external cause; Y99.8 Other external cause status
CPT/HCPCS: 99284

== ENCOUNTER → 2024-09-19 | Emergency (ER) | payer MEDICAID ==
[~2024-09-19] VITALS: Ht 165.1 cm; Wt 101.9 kg
[~2024-09-19] MED LIST changes: +ACET-1025 PO; +IBUP-1986 PO
[2024-09-19 11:15] VITALS: BP 138/80; PULSE 99; RESP 16; O2SAT 99
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
[2024-09-19 12:50] VITALS: TEMP 98
== END | disposition home or self-care (01) ==
LOC: ER 11:07
DX: S46.912A Strain of unspecified muscle, fascia and tendon at shoulder and upper arm level, left arm, initial encounter (principal); Z88.0 Allergy status to penicillin; V89.2XXA Person injured in unspecified motor-vehicle accident, traffic, initial encounter; Y93.89 Activity, other specified; Y92.410 Unspecified street and highway as the place of occurrence of the external cause; Y99.8 Other external cause status
CPT/HCPCS: 99282